=== PATIENT | female | born 1945 | race Caucasian/White ===

== ENCOUNTER 2017-02-01 03:15 | Inpatient (IN) | payer MEDICARE ==
[2017-02-01] MEDS ORDERED: Sodium Chloride 0.9% 1,000 ML IV ONE (03:48)
[2017-02-01] MEDS: Sodium Chloride 0.9% 10 ML Syringe FLUSH PRN ×2 (04:09→05:08)
[2017-02-01] MEDS ORDERED: Iopamidol 612 MG/ML 150 ML Bottle IV PRN (04:44)
--- NOTE | 2017-02-01 05:12 | EDM.PDOC ---
ED HPI GENERAL MEDICAL PROBLEM - General Chief Complaint: Abdominal Pain Stated Complaint: STOMACH PAIN Time Seen by Provider: 02/01/17 03:50 Source of Information: Reports: Patient, Family History Limitations: Reports: No Limitations - History of Present Illness INITIAL COMMENTS - FREE TEXT/NARRATIVE: 72-year-old female with abdominal pain for the past 72 hours. She was seen in clinic yesterday, had a mildly elevated white count but no specific symptoms indicating appendicitis and was given the option of waiting. Over the course of last 24 hours her abdominal pain is worsened. She's had intermittent chills, possibly low-grade fever, no diarrhea or nausea or vomiting. Denies chest pain or shortness of breath. The pain is very sharp, across the lower abdomen and she 's developed peritoneal irritation. Does not radiate to the back. Onset: Gradual Location: Reports: Abdomen Severity: Moderate Associated Symptoms: Reports: Fever/Chills, Loss of Appetite, Malaise Abdominal Pain Score (Numeric/FACES): 2 - Related Data Allergies Allergy/AdvReac Type Severity Reaction Status Date / Time aspirin Allergy Other Verified 02/01/17 03:27 ketorolac tromethamine Allergy Other Verified 02/01/17 03:27 [From Toradol] Sulfa (Sulfonamide Allergy Rash Verified 02/01/17 03:27 Antibiotics) Home Meds: Home Meds Fexofenadine [Irina] 180 mg PO DAILY 08/27/15 [History] Fluticasone Propionate [Flonase] 2 sprays NS DAILY 08/27/15 [History] Montelukast [Singulair] 10 mg PO DAILY 08/27/15 [History] Simvastatin [Zocor] 20 mg PO BEDTIME 08/27/15 [History] Albuterol Sulfate [Proair Hfa] 8.5 gm IH ASDIRECTED 02/01/17 [History] Alendronate [Fosamax] 1 tab PO WEEKLY 02/01/17 [History] Beclomethasone Dipropionate [Qvar] 1 puff IH BID 02/01/17 [History] Oxybutynin Chloride [Ditropan Xl] 5 mg PO DAILY 02/01/17 [History] Past Medical History HEENT History: Reports: Allergic Rhinitis, Hard of Hearing, Impaired Vision, Otitis Media Other HEENT History: wears glasses; hearing aids Cardiovascular History: Reports: High Cholesterol Respiratory History: Reports: Asthma Gastrointestinal History: Reports: Chronic Constipation, GERD, PUD Genitourinary History: Reports: UTI, Recurrent 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: Hematologic History: Reports: Anemia, Iron Deficiency Oncologic (Cancer) History: Reports: None - Infectious Disease History Infectious Disease History: Reports: Chicken Pox, Measles, Mumps - Past Surgical History HEENT Surgical History: Reports: Naso-Sinus Surgery, Polypectomy, Tonsillectomy Respiratory Surgical History: Reports: None GI Surgical History: Reports: EGD, Ted Fundoplication, Polypectomy Female Surgical History: Reports: Breast Biopsy, Hysterectomy, Salpingo- Oophorectomy Oncologic Surgical History: Reports: Biopsy of Breast Social & Family History - Tobacco Use Smoking Status *Q: Never Smoker - Caffeine Use Caffeine Use: Reports: Coffee - Recreational Drug Use Recreational Drug Use: No ED ROS GENERAL - Review of Systems Review Of Systems: See Below Constitutional: Reports: Fever, Chills, Malaise HEENT: Reports: No Symptoms Respiratory: Reports: No Symptoms Cardiovascular: Reports: No Symptoms GI/Abdominal: Reports: Abdominal Pain, Decreased Appetite. Denies: Nausea, Vomiting : Reports: No Symptoms Skin: Reports: No Symptoms Neurological: Reports: No Symptoms Psychiatric: Reports: No Symptoms ED EXAM, GI/ABD - Physical Exam Exam: See Below Exam Limited By: No Limitations General Appearance: Alert, No Apparent Distress Eyes: Bilateral: Normal Appearance (No jaundice) Respiratory/Chest: No Respiratory Distress GI/Abdominal Exam: Soft, Tender (Very tender across the lower abdomen with guarding and rebound tenderness) Neurological: Alert, Oriented Skin Exam: Warm, Dry Course - Vital Signs Last Recorded V/S: Last Vital Signs Temp 98.3 F 02/01/17 14:28 Pulse 90 02/01/17 14:28 Resp 16 02/01/17 14:28 BP 94/77 02/01/17 14:28 Pulse Ox 98 02/01/17 14:28 - Orders/Labs/Meds Orders: Active Orders 24 hr Category Date Time Status Abdomen Pelvis w Cont [CT] Stat Exams 02/01/17 04:18 Taken CULTURE ANAEROBIC [RM] Routine Lab 02/01/17 12:00 Received CULTURE WOUND + SMEAR [RM] Routine Lab 02/01/17 12:00 Results HYDROmorphone/Normal Saline [Dilaudid PAVILION CUTTER 15 MG in NS Med 02/01/17 08:07 Active 30 ML] 0 mg IV ASDIRECTED PRN Iopamidol [Isovue-300 (61%)] Med 02/01/17 04:44 Active 118 ml IV . DIRECTED PRN Naloxone [Narcan] Med 02/01/17 08:07 Active 0.1 mg IV ASDIRECTED PRN Sodium Chloride 0.9% [Normal Saline] 76 ml Med 02/01/17 04:45 Active IV ASDIRECTED Sodium Chloride 0.9% [Saline Flush] Med 02/01/17 04:44 Active 10 ml FLUSH ONETIME PRN Medication Orders Acetaminophen (Tylenol) 650 mg PO Q6H [facility] Last Admin: 02/01/17 16:17 Dose: 650 mg Albuterol/Ipratropium (Duoneb 3.0-0.5 Mg/3 Ml) 3 ml INH ASDIRECTED PRN PRN Reason: Shortness of Breath Fluticasone Propionate (Flonase) 0 gm NASBOTH DAILY [facility] Hydromorphone HCl (Dilaudid Major Gifts Director 15 Mg In Ns 30 Ml) 0 mg IV ASDIRECTED PRN; Protocol PRN Reason: PAVILION C[employer]TER PAIN CONTROL Sodium Chloride (Normal Saline) 76 mls @ 3 mls/sec IV ASDIRECTED ZHAO Stop: 02/01/17 23:00 Last Admin: 02/01/17 05:11 Dose: 3 mls/sec Dextrose/Lactated Ringer's (Dextrose 5%-Lactated Ringers) 1,000 mls @ 150 mls/ hr IV ASDIRECTED [facility] Ampicillin Sodium/Sulbactam (Sodium 3 gm/ Sodium Chloride) 100 mls @ 200 mls/ hr IV Q6H [facility] Last Admin: 02/01/17 14:46 Dose: 200 mls/hr Aztreonam/Dextrose 1 gm/ (Premix) 50 mls @ 100 mls/hr IV Q8H [facility] Last Admin: 02/01/17 16:15 Dose: 100 mls/hr Iopamidol (Isovue-300 (61%)) 118 ml IV . DIRECTED PRN PRN Reason: RADIOLOGY EXAM Stop: 02/02/17 04:45 Last Admin: 02/01/17 05:11 Dose: 118 ml Mometasone Furoate (Asmanex Hfa 100mcg) 0 gm INH BIDRT ZHAO Montelukast Sodium (Singulair) 10 mg PO BEDTIME [facility]O Naloxone HCl (Narcan) 0.1 mg IV ASDIRECTED PRN PRN Reason: decreased respiratory rate Ondansetron HCl (Zofran) 4 mg IV Q4H PRN PRN Reason: N/V Oxybutynin Chloride (Oxybutynin) 2.5 mg PO BID [facility]O Pantoprazole Sodium (Protonix Iv) 40 mg IV Q24H [facility] Last Admin: 02/01/17 14:31 Dose: 40 mg Simvastatin (Zocor) 20 mg PO BEDTIME [facility]HAO Sodium Chloride (Saline Flush) 10 ml FLUSH ONETIME PRN PRN Reason: per radiology protocol Stop: 02/01/17 23:00 Last Admin: 02/01/17 05:08 Dose: 10 ml Admin: 02/01/17 04:09 Dose: 10 ml Labs: Laboratory Tests 02/01/17 02/01/17 Range/Units 04:05 04:05 WBC 10.9 (4.5-11.0) K/uL RBC 4.49 (3.30-5.50) M/uL Hgb 13.3 (12.0-15.0) g/dL Hct 40.0 (36.0-48.0) % MCV 89 (80-98) fL MCH 30 (27-31) pg MCHC 33 (32-36) % Plt Count 199 (150-400) K/uL Neut % (Auto) 80 H (36-66) % Lymph % (Auto) 12 L (24-44) % [place] % (Auto) 8 H (2-6) % Eos % (Auto) 1 L (2-4) % Baso % (Auto) 0 (0-1) % Sodium 137 L (140-148) mmol/L Potassium 3.7 (3.6-5.2) mmol/L Chloride 101 (100-108) mmol/L Carbon Dioxide 25 (21-32) mmol/L Anion Gap 14.7 H (5.0-14.0) mmol/L BUN 13 (7-18) mg/dL Creatinine 1.0 (0.6-1.0) mg/dL Est Cr Clr Drug Dosing 45.76 mL/min Estimated GFR (MDRD) 55 L (>60) Glucose 115 H (74-106) mg/dL Calcium 8.6 (8.5-10.1) mg/dL Meds: Medications Generic Name Dose Route Start Last Admin Trade Name Freq PRN Reason Stop Dose Admin Acetaminophen 650 mg 02/01/17 16:00 02/01/17 16:17 Tylenol PO 650 mg Q6H ZHAO Administration Albuterol/Ipratropium 3 ml 02/01/17 13:00 Duoneb 3.0-0.5 Mg/3 Ml INH ASDIRECTED PRN Shortness of Breath Fluticasone Propionate 0 gm 02/02/17 09:00 Flonase NASBOTH DAILY [facility]O Hydromorphone HCl 0 mg 02/01/17 08:07 Dilaudid Major Gifts Director 15 Mg In Ns 30 Ml IV ASDIRECTED PRN [employer] PAIN CONTROL Protocol Sodium Chloride 76 mls @ 3 mls/sec 02/01/17 04:45 02/01/17 05:11 Normal Saline IV 02/01/17 23:00 3 mls/sec ASDIRECTED ZHAO Administration Dextrose/Lactated Ringer's 1,000 mls @ 150 mls/hr 02/01/17 13:00 Dextrose 5%-Lactated Ringers IV ASDIRECTED ZHAO Ampicillin Sodium/Sulbactam 100 mls @ 200 mls/hr 02/01/17 14:00 02/01/17 14: 46 Sodium 3 gm/ Sodium Chloride IV 200 mls/hr Q6H ZHAO Administration Aztreonam/Dextrose 1 gm/ 50 mls @ 100 mls/hr 02/01/17 15:00 02/01/17 16:15 Premix IV 100 mls/hr Q8H ZHAO Administration Iopamidol 118 ml 02/01/17 04:44 02/01/17 05:11 Isovue-300 (61%) IV 02/02/17 04:45 118 ml . DIRECTED PRN Administration RADIOLOGY EXAM Mometasone Furoate 0 gm 02/01/17 21:00 Asmanex Hfa 100mcg INH BIDRT ZHAO Montelukast Sodium 10 mg 02/01/17 21:00 Singulair PO BEDTIME ZHAO Naloxone HCl 0.1 mg 02/01/17 08:07 Narcan IV ASDIRECTED PRN decreased respiratory rate Ondansetron HCl 4 mg 02/01/17 12:59 Zofran IV Q4H PRN N/V Oxybutynin Chloride 2.5 mg 02/02/17 09:00 Oxybutynin PO BID ZHAO Pantoprazole Sodium 40 mg 02/01/17 14:00 02/01/17 14:31 Protonix Iv IV 40 mg Q24H ZHAO Administration Simvastatin 20 mg 02/01/17 21:00 Zocor PO BEDTIME ZHAO Sodium Chloride 10 ml 02/01/17 04:44 02/01/17 05:08 Saline Flush FLUSH 02/01/17 23:00 10 ml ONETIME PRN Administration per radiology protocol Discontinued Medications Generic Name Dose Route Start Last Admin Trade Name Freq PRN Reason Stop Dose Admin Bupivacaine HCl/Epinephrine Bitart Confirm 02/01/17 06:54 02/01/17 10:01 Marcaine 0.5%/Epinephrine 1:200,000 Administered 02/01/17 06:55 15 ml Dose Administration 50 ml .ROUTE .STK-MED ONE Dexamethasone Confirm 02/01/17 07:28 Dexamethasone Administered 02/01/17 07:29 Dose 4 mg .ROUTE .STK-MED ONE Fentanyl Confirm 02/01/17 07:29 Sublimaze Administered 02/01/17 07:30 Dose 250 mcg .ROUTE .STK-MED ONE Fentanyl Confirm 02/01/17 10:24 Sublimaze Administered 02/01/17 10:25 Dose 100 mcg .ROUTE .STK-MED ONE Glycopyrrolate Confirm 02/01/17 07:28 Robinul Administered 02/01/17 07:29 Dose 1 mg .ROUTE .STK-MED ONE Sodium Chloride 1,000 mls @ 500 mls/hr 02/01/17 03:48 02/01/17 04:07 Normal Saline IV 02/01/17 05:47 500 mls/hr .BOLUS ONE Administration Ampicillin Sodium/Sulbactam 100 mls @ 200 mls/hr 02/01/17 05:36 02/01/17 05: 46 Sodium 3 gm/ Sodium Chloride IV 02/01/17 06:05 200 mls/hr ONETIME ONE Administration Aztreonam 1 gm/ Sodium 50 mls @ 100 mls/hr 02/01/17 06:37 02/01/17 06:55 Chloride IV 02/01/17 07:06 100 mls/hr ONETIME ONE Administration Dextrose/Lactated Ringer's 1,000 mls @ 125 mls/hr 02/01/17 08:15 Dextrose 5%-Lactated Ringers IV ASDIRECTED ZHAO Neostigmine Methylsulfate Confirm 02/01/17 07:28 Neostigmine Administered 02/01/17 07:29 Dose 5 mg .ROUTE .STK-MED ONE Ondansetron HCl Confirm 02/01/17 07:28 Zofran Administered 02/01/17 07:29 Dose 4 mg .ROUTE .STK-MED ONE Propofol Confirm 02/01/17 07:28 Diprivan 20 Ml Administered 02/01/17 07:29 Dose 200 mg .ROUTE .STK-MED ONE Rocuronium [place] Confirm 02/01/17 07:28 Zemuron Administered 02/01/17 07:29 Dose 50 mg .ROUTE .STK-MED ONE Succinylcholine Chloride Confirm 02/01/17 07:28 Quelicin Administered 02/01/17 07:29 Dose 200 mg .ROUTE .STK-MED ONE - Re-Assessments/Exams Free Text/Narrative Re-Assessment/Exam: 02/01/17 05:12 CBC and BMP were obtained with the intention of getting a CT of the abdomen and pelvis with IV contrast. White count returned normal. 02/01/17 06:20 CT scan confirmed acute appendicitis. Patient was given 3 g of Unasyn IV and Dr. Lovelace contacted for surgical consultation. Anticipation is for the patient to be admitted for surgery. Departure - Departure Time of Disposition: 10:31 Disposition: Admitted As Inpatient 66 Condition: Fair Clinical Impression: Appendicitis Qualifiers: Appendicitis type: acute appendicitis Acute appendicitis type: with localized peritonitis Qualified Code(s): K35.3 - Acute appendicitis with localized peritonitis - Discharge Information - My Orders Last 24 Hours: My Active Orders 02/01/17 04:18 Abdomen Pelvis w Cont [CT] Stat 02/01/17 04:44 Iopamidol [Isovue-300 (61%)] 118 ml IV . DIRECTED PRN Sodium Chloride 0.9% [Saline Flush] 10 ml FLUSH ONETIME PRN 02/01/17 04:45 Sodium Chloride 0.9% [Normal Saline] 76 ml IV ASDIRECTED - Assessment/Plan Last 24 Hours: My Active Orders 02/01/17 04:18 Abdomen Pelvis w Cont [CT] Stat 02/01/17 04:44 Iopamidol [Isovue-300 (61%)] 118 ml IV . DIRECTED PRN Sodium Chloride 0.9% [Saline Flush] 10 ml FLUSH ONETIME PRN 02/01/17 04:45 Sodium Chloride 0.9% [Normal Saline] 76 ml IV ASDIRECTED
[2017-02-01] MEDS ORDERED: Ampicillin/Sulbactam Na 3 GM in Sodium Chloride 0.9% 100 ML IV ONE (05:36)
[2017-02-01] MEDS ORDERED: Bupivacaine 0.5%/EPINEPHrine 1:200,000 50 ML MDV ONE (06:54)
[2017-02-01] MEDS ORDERED: Succinylcholine 200 MG/10 ML MDV ONE (07:28)
[2017-02-01] MEDS ORDERED: Propofol 200 MG/20 ML SDV ONE (07:28)
[2017-02-01] MEDS ORDERED: Neostigmine Methylsulfate 1 MG/ML 5 ML Syringe ONE (07:28)
[2017-02-01] MEDS ORDERED: Glycopyrrolate 0.2 MG/ML 5 ML MDV ONE (07:28)
[2017-02-01] MEDS ORDERED: Rocuronium 50 MG/5 ML Vial ONE (07:28)
[2017-02-01] MEDS ORDERED: Ondansetron 4 MG/2 ML SDV ONE (07:28)
[2017-02-01] MEDS ORDERED: Dexamethasone 4 MG/ML SDV ONE (07:28)
[2017-02-01] MEDS ORDERED: fentaNYL 250 MCG/5 ML SDV ONE (07:29)
[2017-02-01] MEDS ORDERED: Naloxone 0.4 MG/ML SDV IV PRN (08:07)
[2017-02-01] MEDS ORDERED: HYDROmorphone/Normal Saline 15 MG/30 ML PCA IV PRN (08:07)
[2017-02-01] MEDS ORDERED: Dextrose 5%-Lactated Ringers 1,000 ML IV SCH (08:15)
[2017-02-01] MEDS ORDERED: fentaNYL 100 MCG/2 ML SDV ONE (10:24)
[2017-02-01] MEDS ORDERED: Ondansetron 4 MG/2 ML SDV IV PRN (12:59)
[2017-02-01] MEDS ORDERED: Albuterol/Ipratropium 3.0-0.5 MG/3 ML Neb Soln INH PRN (13:00)
[2017-02-01] MEDS: Pantoprazole 40 MG Vial IV SCH (14:31)
[2017-02-01] MEDS: Ampicillin/Sulbactam Na 3 GM in Sodium Chloride 0.9% 100 ML IV SCH ×2 (14:46→19:29)
[2017-02-01] MEDS: Aztreonam/Dextrose-Water 1 GM in Premix Bag 1 BAG IV SCH ×2 (16:15→23:21)
[2017-02-01] MEDS: Acetaminophen 325 MG Tab PO SCH ×2 (16:17→23:22)
[2017-02-01] MEDS: Dextrose 5%-Lactated Ringers 1,000 ML IV SCH (17:59)
[2017-02-01] MEDS: Mometasone Furoate HFA 100mcg/Puff 13 GM Inhaler INH SCH ×2 (19:45→21:02)
[2017-02-01] MEDS: Simvastatin 20 MG Tab PO SCH ×2 (19:46→21:03)
[2017-02-01] MEDS: Montelukast 10 MG Tab PO SCH ×2 (19:48→21:02)
[2017-02-02] MEDS: Ampicillin/Sulbactam Na 3 GM in Sodium Chloride 0.9% 100 ML IV SCH ×4 (02:00→19:16)
[2017-02-02] MEDS: Acetaminophen 325 MG Tab PO SCH ×4 (04:53→21:33)
[2017-02-02] MEDS: Aztreonam/Dextrose-Water 1 GM in Premix Bag 1 BAG IV SCH ×3 (07:36→23:17)
[2017-02-02] MEDS: Mometasone Furoate HFA 100mcg/Puff 13 GM Inhaler INH SCH ×2 (08:33→21:34)
[2017-02-02] MEDS: Fluticasone Propionate Nasal Spray 16 GM Bottle NASBOTH SCH (08:34)
[2017-02-02] MEDS: Oxybutynin 5 MG Tab PO SCH ×2 (08:35→21:32)
[2017-02-02] MEDS: Dextrose 5%-Lactated Ringers 1,000 ML IV SCH (10:29)
--- NOTE | 2017-02-02 11:03 | PN ---
DATE OF SERVICE: 02/01/2017 SUBJECTIVE: Katia is postop day 1. She states her pain is controlled. She has been up ambulating. She is using her IS. Her Groves was discontinued early this a.m. and she has not voided yet. REVIEW OF SYSTEMS: Remainder of review of systems is negative for any pertinent positives and negatives. OBJECTIVE: GENERAL: Katia Ramachandran is a pleasant 72-year-old female. VITAL SIGNS: TPR is 98.1, 65, 15, blood pressure 130/63. HEENT: Negative. NECK: Supple. HEART: Regular rate and rhythm. LUNGS: Clear to auscultation in all four cummins. No wheezing, rales, or rhonchi. ABDOMEN: Dressings are dry and intact. Abdominal binder is on. FERDINAND drain put out 50 mL of a light pink serosanguineous drainage. EXTREMITIES: SCDs are on and no peripheral edema. ASSESSMENT: Diagnostic laparoscopy with partial cecectomy including overlying appendix and drainage of pericolonic abscess for perforated appendix and inflammatory extraversion of the base of the cecum with pericolonic abscess. Date of surgery 02/01/2017. PLAN: 1. Full liquid diet. 2. Senna Plus 2 p.o. daily. 3. Dressing off. 4. May shower. 5. Good pulmonary toilet. 6. We will evaluate p.r.n. or in a.m. Ayla Diane PA-C /[id number]
[2017-02-02] MEDS: Pantoprazole 40 MG Vial IV SCH (13:27)
[2017-02-02] MEDS: Montelukast 10 MG Tab PO SCH (21:33)
[2017-02-02] MEDS: Simvastatin 20 MG Tab PO SCH (21:34)
[2017-02-03] MEDS: Ampicillin/Sulbactam Na 3 GM in Sodium Chloride 0.9% 100 ML IV SCH ×4 (01:01→19:42)
[2017-02-03] MEDS: Acetaminophen 325 MG Tab PO SCH ×4 (03:51→21:09)
[2017-02-03] MEDS: Aztreonam/Dextrose-Water 1 GM in Premix Bag 1 BAG IV SCH ×2 (07:01→15:57)
[2017-02-03] MEDS: Mometasone Furoate HFA 100mcg/Puff 13 GM Inhaler INH SCH ×2 (09:16→20:29)
[2017-02-03] MEDS: Bisacodyl 5 MG Tab PO SCH ×2 (09:17→20:29)
[2017-02-03] MEDS: Fluticasone Propionate Nasal Spray 16 GM Bottle NASBOTH SCH (09:18)
[2017-02-03] MEDS: Oxybutynin 5 MG Tab PO SCH ×2 (09:18→20:30)
[2017-02-03] MEDS: Pantoprazole 40 MG Tab.CR PO SCH (11:42)
[2017-02-03] MEDS: traMADol 50 MG Tab PO PRN ×2 (11:42→20:27)
--- NOTE | 2017-02-03 12:18 | PN ---
DATE OF SERVICE: 02/03/2017 SUBJECTIVE: Katia states that she had some hallucinations on her Dilaudid COAT FITTER. She has been up, sitting in the chair. She is on a full liquid diet. Her bowels have not moved yet. She is not passing any flatus. Oral intake was 2440 and urine output was 2725. REVIEW OF SYSTEMS: Remainder of review of systems negative for any pertinent positives and negatives. OBJECTIVE: GENERAL: Katia Ramachandran is a pleasant 72-year-old female. VITAL SIGNS: TPR is 98.3, 79, 16, and blood pressure 146/64. HEENT: Negative. NECK: Supple. HEART: Regular rate and rhythm. LUNGS: Clear. ABDOMEN: Abdominal binder is on. EXTREMITIES: Without peripheral edema. FERDINAND drain is intact. ASSESSMENT: Diagnostic laparoscopy with partial cecectomy, including overlying appendix, and drainage of pericolonic abscess for perforated appendix and inflammatory extraversion of the base of the cecum and pericolonic abscess. Date of surgery 02/01/2017. PLAN: 1. Discontinue COAT FITTER. 2. Discontinue continuous pulse ox. 3. Tramadol 50 mg q.4 hours p.r.n. pain. 4. Dulcolax 20 mg tabs b.i.d. until BM. 5. Good pulmonary toilet. 6. Will evaluate p.r.n. or in a.m. Ayla Diane PA-C /[id number]
[2017-02-03] MEDS ORDERED: Melatonin 3 MG Tab PO PRN (20:23)
[2017-02-03] MEDS: Montelukast 10 MG Tab PO SCH (20:30)
[2017-02-03] MEDS: Simvastatin 20 MG Tab PO SCH (20:31)
[2017-02-04] MEDS: traMADol 50 MG Tab PO PRN ×2 (03:51→08:03)
[2017-02-04] MEDS: Acetaminophen 325 MG Tab PO SCH (03:51)
[2017-02-04] MEDS ORDERED: Amoxicillin/Clavulanate K 875-125 MG Tab PO SCH (08:00)
[2017-02-04] MEDS: Mometasone Furoate HFA 100mcg/Puff 13 GM Inhaler INH SCH (08:05)
[2017-02-04] MEDS: Pantoprazole 40 MG Tab.CR PO SCH (08:05)
[2017-02-04] MEDS: Oxybutynin 5 MG Tab PO SCH (08:06)
[2017-02-04] MEDS: Fluticasone Propionate Nasal Spray 16 GM Bottle NASBOTH SCH (08:06)
[2017-02-04 08:10] VITALS: BP 142/44
--- NOTE | 2017-02-04 09:29 | DISCH ---
ADMISSION DIAGNOSES: Abdominal pain, hypercholesterolemia, asthma, chronic constipation, gastroesophageal reflux disease, pyloric ulcer disease, recurrent urinary tract infections, and iron deficiency anemia. DISCHARGE DIAGNOSES: Diagnostic laparoscopy with partial cecectomy including overlying appendix and drainage of pericolonic abscess for perforated appendix and inflammatory extraversion of the base of the cecum and pericolonic abscess. Date of surgery, 02/01/2017. HISTORY: Katia Ramachandran is a 72-year-old female who had a 72-hour history of abdominal pain. After preoperative evaluation and discussion of possible risks and possible complications, she wished to proceed with surgical procedure. HOSPITAL COURSE: Katia had her surgery on 02/01/2017. She had no operative complications. On postop day #1, she stated her pain was controlled. She was up ambulating. She was started on a full liquid diet. On postop day #2, she was changed to oral pain medication. She was having some hallucinations on the Dilaudid TAILOR HELPER. By postop day #3, her activity was good, she was having bowel movements, pain was well managed, activity good, vital signs stable, and she was able to be discharged to home. PHYSICAL EXAMINATION: GENERAL: Katia Ramachandran is a 72-year-old female. VITAL SIGNS: Height is 5 feet 4.96 inches. Weight is 175 pounds. TPR 98.6, 96, 18, and blood pressure 142/44. HEENT: Negative. NECK: Supple. HEART: Regular rate and rhythm. LUNGS: Clear. ABDOMEN: Incisions look good. 4x4s over FERDINAND drain sites. Abdominal binder is on. EXTREMITIES: Without peripheral edema. DISPOSITION: Discharged to home. CONDITION: Stable and improving. FOLLOWUP APPOINTMENT: With Ayla Diane PA-C, on 02/12/2017 at 10 a.m. DISCHARGE MEDICATIONS: New prescriptions; 1. Augmentin 875/125 mg 1 tablet every 12 hours, #10. 2. Tylenol 650 mg q.6 hours p.r.n. pain. 3. Tramadol 50 mg oral q.4 hours p.r.n. pain, #30. 4. She is to resume her home medications of albuterol sulfate, ProAir inhaler, use as directed; Fosamax one tablet oral weekly; QVAR one puff inhalation twice daily; Irina 180 mg oral daily; Flonase 2 sprays in each nostril daily; Singulair 10 mg oral daily; Ditropan XL 5 mg oral daily; and Zocor 20 mg oral at bedtime. DISCHARGE DIET: Usual diet as tolerated. Drink 8 to 10 glasses of water a day. ACTIVITY: No lifting over 10 pounds for 2 weeks. Other activity, walk at least 6 times daily inside your home. Driving, do not drive while on pain medication. May shower. DISCHARGE INSTRUCTIONS: Notify provider if any fever, increased pain, swelling, redness, drainage, nausea, or vomiting. Wound incision care, keep site clean and dry. Wear abdominal binder for 2 weeks and then as tolerated. Special instruction; use incentive spirometer 10 times every hour while awake.
--- NOTE | 2017-02-04 18:08 | OR ---
DATE OF PROCEDURE: 02/01/2017 PREOPERATIVE DIAGNOSIS: Acute appendicitis. POSTOPERATIVE DIAGNOSIS: Perforated appendicitis with inflammatory extension onto base of cecum with pericolonic abscess. OPERATIVE PROCEDURE: Diagnostic laparoscopy with: 1. Partial cecectomy including excision of overlying appendix (01861). 2. Drainage of pericolonic abscess ([id number]). ANESTHESIA: General. INDICATIONS FOR PROCEDURE: This is a 72-year-old admitted overnight with an acute appendicitis. The plan is to proceed with a diagnostic laparoscopy, laparotomy if necessary, and appendectomy. Potential risks of the procedure were reviewed with the patient including bleeding, infection, leaks from various GI tract closures and occasional need to do more extensive procedure based on operative findings were gone over along with remote possibility of cardiopulmonary, septic, or hemorrhagic complications leading to , and the patient wishes to proceed. DETAILS OF PROCEDURE: The patient was taken to the operating room and placed in a supine position. After general endotracheal anesthesia was induced, a Groves catheter was inserted and the abdomen was prepped and draped. Three fingerbreadths superior and to the left of the umbilicus, a transverse incision was made and peritoneal cavity entered under direct vision with an Optiview trocar inflated to 15 mmHg pressure of CO2. Laparoscope was then reinserted. No underlying trocar insertion site injuries were seen. A 12 mm trocars were placed in the right upper quadrant and left lower quadrant, and the abdomen examined. The patient was noted to have a distended stomach and an orogastric tube was passed per Anesthesia to alleviate that problem. In the right lower quadrant, a cecal base was identified on the CT scan of the appendix extended from cecal base downward over the pelvic inlet. The base of the appendix was identified. The patient had quite a bit of inflammation and what appeared to be near necrosis extending somewhat onto the cecum mesoappendix and adjacent mesentery of the cecum and the cecum was then divided with 2 firings of the JYOTSNA purple loads. We were careful to not impinge on the ileocecal valve and the staple line appeared to be intact. The mesoappendix was then gradually dissected downward and divided with Harmonic Scalpel. As the appendix was then mobilized up from the pelvis, it became evident there was an abscess present. This extended upward in the posterior abdomen and pelvic inlet somewhat underneath the cecum. Periappendiceal pericolonic abscess was then drained and cultures were obtained and at that point the remainder of the mesoappendix was divided with Harmonic scalpel. The specimen consisting of cecal base was attached, overlying appendix was then placed in the specimen bag and delivered through the left lower quadrant trocar site. At this point, we were careful in examining and evacuating any additional purulent material staple line, vascular closure with Harmonic scalpel all appeared to be satisfactory through a stiff 5 mm trocar placed in the right flank and 10-[place] round Jairo-Ferro drain was placed over the cecal excision site and from there into the pelvis along the course of the abscess. At that point, no further problems noted. Trocars were removed and the peritoneal cavity deflated. The fascia at the 12 mm site was closed with 0 Vicryl stitch and skin with 4-0 Vicryl skin stitch. Dressing was applied. The patient was taken to the recovery room in satisfactory condition. Angel Lovelace MD /[id number]
== END 2017-02-04 10:15 | disposition home or self-care (01) | DRG 330 ==
LOC: JP.ED 03:15 → JP.SDS 08:52 → JP.MS 10:30
PROVIDERS: ADMIT Surgery; ATTEND Surgery
PROC: 0DTJ4ZZ Resection of Appendix, Percutaneous Endoscopic Approach (ICD-10-PCS; principal; 2017-02-01)
PROC: 0DBH4ZZ Excision of Cecum, Percutaneous Endoscopic Approach (ICD-10-PCS; 2017-02-01)
PROC: 0D9W4ZX Drainage of Peritoneum, Percutaneous Endoscopic Approach, Diagnostic (ICD-10-PCS; 2017-02-01)
DX: K35.3 Acute appendicitis with localized peritonitis (principal); J45.909 Unspecified asthma, uncomplicated; R10.30 Lower abdominal pain, unspecified; K63.0 Abscess of intestine; D50.9 Iron deficiency anemia, unspecified; Z87.440 Personal history of urinary (tract) infections; E78.00 Pure hypercholesterolemia, unspecified; H54.7 Unspecified visual loss; H91.90 Unspecified hearing loss, unspecified ear; K59.09 Other constipation; K21.9 Gastro-esophageal reflux disease without esophagitis; Z88.6 Allergy status to analgesic agent; Z88.2 Allergy status to sulfonamides; Z88.8 Allergy status to other drugs, medicaments and biological substances; R85.5 Abnormal microbiological findings in specimens from digestive organs and abdominal cavity
CPT/HCPCS: 36415; 74177; 80048; 85025; 96361; 96365; 96367; 96375; 99285; J0295; J0330; J1100; J2405; J2704; J2710; J3010 ×2; J7030 ×2; J7040; J7050 ×3; 87070; 87075; 87186; 87205; 88304; 94762; 99284; A9270-GY; C9113; J1170; J3490; J7042; S0073

== ENCOUNTER 2017-11-17 05:13 | Day surgery (SDC) | payer MEDICARE, BC ==
[2017-11-17] MEDS ORDERED: Dextrose 5%-Lactated Ringers 1,000 ML IV SCH (06:00)
[2017-11-17] MEDS ORDERED: Propofol 200 MG/20 ML SDV ONE (07:35)
[2017-11-17] MEDS ORDERED: fentaNYL 100 MCG/2 ML SDV ONE (07:36)
[2017-11-17 09:01] VITALS: BP 113/46
--- NOTE | 2017-11-17 17:19 | OR ---
DATE OF PROCEDURE: 11/17/2017 PREOPERATIVE DIAGNOSIS: Indications for colon screening. POSTOPERATIVE DIAGNOSIS: Normal screening colonoscopy. OPERATIVE PROCEDURE: Flexible colonoscopy. ANESTHESIA: IV sedation. INDICATION FOR PROCEDURE: A 72-year-old presenting for a screening colonoscopy. She does not have any family or personal history of colon neoplasia. The plan is to proceed with a colonoscopy with biopsies and/or polypectomy as indicated. Potential risks including bleeding and perforation were discussed, and the patient wishes to proceed. DETAILS OF PROCEDURE: The patient was taken to the operating room and placed in a left lateral decubitus position. IV sedation was administered, after which the initial digital rectal exam was performed and was unremarkable. Colonoscope was then passed into the rectum with retroflexion revealing uncomplicated hemorrhoidal columns. The scope was then eventually passed to the cecum. The prep was very good with essentially no stool present. To that level, no abnormalities were noted, specifically, there were no diverticula, no areas of colitis and no polyps or other signs of neoplasia. The scope was then withdrawn and the above findings were reconfirmed, and the procedure concluded. The patient was taken to the recovery room in a satisfactory condition. At 72 years old, I would say that if her health in 10 years remains quite good, she could be considered for a repeat screening colonoscopy. Angel Lovelace MD /[id number]
== END 2017-11-17 09:05 | disposition home or self-care (01) ==
LOC: JP.SDS 05:13
PROVIDERS: ATTEND Surgery
DX: Z12.11 Encounter for screening for malignant neoplasm of colon (principal); K64.9 Unspecified hemorrhoids; E66.9 Obesity, unspecified; J45.909 Unspecified asthma, uncomplicated; K21.9 Gastro-esophageal reflux disease without esophagitis
CPT/HCPCS: G0121; J2704; J3010; J7042